=== PATIENT | male | born 1950 | race African-American/Black ===

== ENCOUNTER 2017-09-20 09:33 | Emergency (ER) | payer OTHER ==
[2017-09-20 09:44] VITALS: BP 150/72; PULSE 56; TEMP 97.4; BMI 34.7
--- NOTE | 2017-09-20 10:13 | PDOC ---
Suture Removal/Wound Check HPI - History of Present Illness Chief Complaint: Revisit,Wound Recheck Stated Complaint: FOLLOW-UP/ ABSCESS Time Seen by Provider: 09/20/17 09:53 History Source: Yes: Patient Exam Limitations: Yes: No Limitations Treated at: [facility] [place] ED - Previous ED Treatment Type of procedure performed on last visit: Yes: I&D of Abscess Tetanus Immunization: Yes: Up to Date Antibiotics Prescribed: Yes Past History - Travel Traveled outside of the country in the last 30 days: No Close contact w/someone who was outside of country & ill: No - Past Medical History Allergies/Adverse Reactions: Allergies Allergy/AdvReac Type Severity Reaction Status Date / Time Egg Derived AdvReac Verified 09/20/17 09:43 lactose AdvReac Verified 09/20/17 09:43 eggs AdvReac Intermediate Uncoded 09/20/17 09:43 Lactose-intolerance AdvReac Intermediate Uncoded 09/20/17 09:43 Home Medications: Ambulatory Orders Allopurinol [Zyloprim -] 300 mg PO DAILY 05/15/16 Apixaban [Eliquis] 5 mg PO BID 02/18/17 Furosemide [Lasix] 20 mg PO ASDIR 02/18/17 Ramipril [Altace] 10 mg PO DAILY 02/18/17 Simvastatin [Zocor -] 40 mg PO HS 02/18/17 Sulfamethoxazole/Trimethoprim [Bactrim Ds -] 1 tab PO BID #14 tablet 09/18/17 Anemia: No Asthma: No Cancer: No Cardiac Disorders: Yes (ATRIAL FIBRILLATION, HYPERTENSIVE CARDIOVASCULAR DISEASE ) 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) COPD: No CHF: No Dementia: No Diabetes: No GI Disorders: No Disorders: No HTN: Yes Hypercholesterolemia: Yes Liver Disease: No Seizures: No Thyroid Disease: No - Surgical History Cardiac Surgery: (CARDIOVERSION X 1) Lung Surgery: No Neurologic Surgery: No - Suicide/Smoking/Psychosocial Hx Smoking History: Former smoker Have you smoked in the past 12 months: No Number of Cigarettes Smoked Daily: 3 If you are a former smoker, when did you quit?: 2 weeks ago Information on smoking cessation initiated: No 'Breaking Loose' booklet given: 01/01/15 Hx Alcohol Use: No Drug/Substance Use Hx: No Substance Use Type: Alcohol Hx Substance Use Treatment: No Suture Removal/Wound Check PE - Physical Exam Laceration/Wound Check Symptoms: reports: None Current Severity Level: None Maximum Severity Level: None *Review of Systems - Review of Systems Able to Perform ROS?: Yes Constitutional: Yes: See HPI, Malaise. No: Symptoms Reported, Fever HEENTM: No: Symptoms Reported Musculoskeletal: Yes: Symptoms Reported Integumentary: Yes: Symptoms Reported, See HPI, Lesions All Other Systems: Reviewed and Negative Medical Decision Making - Medical Decision Making 09/20/17 16:57 Abscess to left right mid back, packing removed to reveal a large amount of purulent drainage from wound site. Area was reanesthetized using 1% lidocaine with epinephrine, and extended incision to allow for further debriding and repacked using iodoform gauze and dressing. Patient tolerated well *DC/Admit/Observation/Transfer Diagnosis at time of Disposition: Abscess - Discharge Dispostion Disposition: HOME Condition at time of disposition: Stable Admit: No - Referrals Referrals: Juan Shankar MD [Primary Care Provider] - Perry Krueger MD [Staff Physician] - - Patient Instructions Printed Discharge Instructions: DI for Debridement of a Wound, Infection, or Burn Additional Instructions: Rest, keep area elevated. Avoid strenuous activity or exercise until wound is healed Use hot soaks to area to bring more blood to the surface and encourage drainage May change dressings as needed to keep clean - trying to avoid removal of packing for 2 days. If packing needs to be changed, return to emergency department or with your followup physician for wound care and evaluation and repacking as needed If packing needs to be removed, then in 2 days, while in the shower remove dressing and quickly pull the packing taken out. Allow water from shower to wash area thoroughly for 2-3 minutes, and pat dry upon exit of shower and replace dressing. Change his dressing daily until the wound is completely healed. May use Tylenol or Motrin for mild pain relief Use stronger medications as directed and prescribed Continue all medications as prescribed Followup with private physician in 2-3 days for wound check Return to emergency Department for worsening swelling, pain, redness, fevers as needed - Post Discharge Activity
== END 2017-09-20 11:34 | disposition home or self-care (01) ==
LOC: JERFT 09:33
DX: Z48.02 Encounter for removal of sutures (principal); L02.212 Cutaneous abscess of back [any part, except buttock and flank]
CPT/HCPCS: 99281-25

== ENCOUNTER 2017-09-23 13:13 | Emergency (ER) | payer OTHER ==
[2017-09-23 13:22] VITALS: BP 143/55; PULSE 59; TEMP 98; BMI 34.7
--- NOTE | 2017-09-23 15:54 | PDOC ---
Suture Removal/Wound Check HPI - History of Present Illness Chief Complaint: Wound Stated Complaint: Boil re-check Time Seen by Provider: 09/23/17 14:57 History Source: Yes: Patient Exam Limitations: Yes: No Limitations Treated at: [facility] ED - Previous ED Treatment Type of procedure performed on last visit: Yes: I&D of Abscess Past History - Travel Traveled outside of the country in the last 30 days: Yes Close contact w/someone who was outside of country & ill: Yes - Past Medical History Allergies/Adverse Reactions: Allergies Allergy/AdvReac Type Severity Reaction Status Date / Time Egg Derived AdvReac Verified 09/23/17 13:21 lactose AdvReac Verified 09/23/17 13:21 eggs AdvReac Intermediate Uncoded 09/23/17 13:21 Lactose-intolerance AdvReac Intermediate Uncoded 09/23/17 13:21 Home Medications: Ambulatory Orders Allopurinol [Zyloprim -] 300 mg PO DAILY 05/15/16 Apixaban [Eliquis] 5 mg PO BID 02/18/17 Furosemide [Lasix] 20 mg PO ASDIR 02/18/17 Ramipril [Altace] 10 mg PO DAILY 02/18/17 Simvastatin [Zocor -] 40 mg PO HS 02/18/17 Sulfamethoxazole/Trimethoprim [Bactrim Ds -] 1 tab PO BID #14 tablet 09/18/17 Anemia: No Asthma: No Cancer: No Cardiac Disorders: Yes (ATRIAL FIBRILLATION, HYPERTENSIVE CARDIOVASCULAR DISEASE ) 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) COPD: No CHF: No Dementia: No Diabetes: No GI Disorders: No Disorders: No HTN: Yes Hypercholesterolemia: Yes Liver Disease: No Seizures: No Thyroid Disease: No - Surgical History Cardiac Surgery: (CARDIOVERSION X 1) Lung Surgery: No Neurologic Surgery: No - Suicide/Smoking/Psychosocial Hx Smoking History: Never smoked Have you smoked in the past 12 months: No Number of Cigarettes Smoked Daily: 3 If you are a former smoker, when did you quit?: 2 weeks ago Information on smoking cessation initiated: Yes 'Breaking Loose' booklet given: 09/23/17 Hx Alcohol Use: No Drug/Substance Use Hx: No Substance Use Type: Alcohol Hx Substance Use Treatment: No Suture Removal/Wound Check PE - Physical Exam Laceration/Wound Check Symptoms: reports: None Comments: 09/24/17 10:21 Packing removed to reveal less purulent drainage and some serosanguineous fluid. Fluid much less then 2 days previous and no obvious infection retention obtained. Cleaned and repacked with approximately 3 cm of packing. Patient will remove packing and no need for return unless symptoms change. Will follow-up with surgery for cyst excision once healed Current Severity Level: None Maximum Severity Level: None *Review of Systems - Review of Systems Able to Perform ROS?: Yes Constitutional: Yes: Symptoms Reported, See HPI, Malaise *DC/Admit/Observation/Transfer Diagnosis at time of Disposition: Wound check, abscess - Discharge Dispostion Disposition: HOME Condition at time of disposition: Stable Admit: No - Referrals Referrals: Lilly Castellon MD [Primary Care Provider] - - Patient Instructions Printed Discharge Instructions: DI for Epidermal Cyst Additional Instructions: Rest, keep area elevated. Avoid strenuous activity or exercise until wound is healed Use hot soaks to area to bring more blood to the surface and encourage drainage May change dressings as needed to keep clean - trying to avoid removal of packing for 2 days. If packing needs to be changed, return to emergency department or with your followup physician for wound care and evaluation and repacking as needed If packing needs to be removed, then in 2 days, while in the shower remove dressing and quickly pull the packing taken out. Allow water from shower to wash area thoroughly for 2-3 minutes, and pat dry upon exit of shower and replace dressing. Change his dressing daily until the wound is completely healed. May use Tylenol or Motrin for mild pain relief Use stronger medications as directed and prescribed Continue all medications as prescribed Followup with private physician in 2-3 days for wound check Return to emergency Department for worsening swelling, pain, redness, fevers as needed - Post Discharge Activity
== END 2017-09-23 16:06 | disposition home or self-care (01) ==
LOC: JERFT 13:13
DX: Z48.01 Encounter for change or removal of surgical wound dressing (principal)
CPT/HCPCS: 99281-25